=== PATIENT | male | born 1960 | race Caucasian/White ===

== ENCOUNTER 2016-07-24 23:44 | Emergency (ER) | payer OTHER ==
[~2016-07-24] VITALS: Ht 180.3 cm; Wt 89.7 kg
[~2016-07-24 23:44] MED LIST: APRISO0.375 GM PO; ATARAX,VISTARIL25 MG PO; AZATHIOPRINE50 MG PO; AZITHROMYCIN250 MG PO; BENADRYL25 MG PO; BENZONATATE200 MG PO; BUTALB-ACETAMI1 EAC2 PO; CIPRO500 MG PO; COUMADIN2 MG PO; CRESTOR10 MG PO; Cipro PO; DAILY VITAMIN1 EAC4 PO; DAILY VITAMIN1 EAC8 PO; DELZICOL400 MG PO; DICYCLOMINE HCL20 MG PO; EXCEDRIN EXTRA1 EACH PO; FISH OIL 1,0001 EA10 PO; FLAGYL500 MG PO; Flagyl PO; HYDROCORTISONE25 MG PO; LOVENOX80 MG/0.8 SC; METRONIDAZOLE500 MG PO; PEPCID20 MG PO; PREDNISONE10 MG PO; PREDNISONE20 MG PO; PREDNISONE5 MG PO; PROTONIX40 MG PO; THERAPEUTIC VI1 EACH; WARFARIN SODIUM2 MG PO; XARELTO20 MG PO; ZOFRAN4 MG PO; ZYRTEC10 M3 PO
[2016-07-25] MEDS ORDERED: ERYTHROMYC1 APPLICAT RIGHT EYE (02:16)
[2016-07-25 02:24] VITALS: BP 132/76
== END 2016-07-25 02:25 | disposition home or self-care (01) ==
LOC: EME 23:44
PROC: 08C8XZZ Extirpation of Matter from Right Cornea, External Approach (ICD-10-PCS; principal; 2016-07-24)
DX: T15.01XA Foreign body in cornea, right eye, initial encounter (principal); Z87.891 Personal history of nicotine dependence
CPT/HCPCS: 99281; 99283

== ENCOUNTER 2016-10-08 03:35 | Emergency (ER) | payer OTHER ==
[~2016-10-08] VITALS: Ht 180.3 cm; Wt 88.2 kg
[~2016-10-08 03:35] MED LIST changes: +ERYTHROMYC1 APPLICAT RIGHT EYE
[2016-10-08] MEDS ORDERED: FLEXERIL10 MG PO (04:03)
[2016-10-08] MEDS ORDERED: MEDROL DOSEPAK4 MG PO (04:03)
[2016-10-08 04:20] VITALS: BP 125/78
== END 2016-10-08 04:21 | disposition home or self-care (01) ==
LOC: EME 03:35
DX: M54.41 Lumbago with sciatica, right side (principal); K50.90 Crohn's disease, unspecified, without complications; Z86.718 Personal history of other venous thrombosis and embolism; Z79.01 Long term (current) use of anticoagulants; Z87.891 Personal history of nicotine dependence
CPT/HCPCS: 99281; 99284

== ENCOUNTER 2017-08-12 11:39 | Day surgery (SDC) | payer OTHER ==
[~2017-08-12] VITALS: Ht 180.3 cm; Wt 86.6 kg
[~2017-08-12 11:39] MED LIST changes: +COUMADIN2.5 MG PO; +FEOSOL325 MG PO; +FISH OIL 1,2001 EAC3 PO; +FLEXERIL10 MG PO; +HUMIRA40 MG/0.1 SC; +MEDROL DOSEPAK4 MG PO; +MESALAMINE1.2 GM PO; +ROBAXIN500 MG PO; +[UNRECOGNIZED DRUG - OTHER] PO
[2017-08-12 12:05] VITALS: BP 141/87
[2017-08-12] MEDS ORDERED: METHOCARBAMOL500 MG PO (15:12)
[2017-08-12] MEDS ORDERED: ENDOCET 5-3251 EACH PO (15:12)
[2017-08-12 19:54] VITALS: BP 122/62
[2017-08-12 23:44] VITALS: BP 116/59
[2017-08-13 05:42] VITALS: BP 120/78
[2017-08-13 07:35] VITALS: BP 116/66
[2017-08-13 11:28] VITALS: BP 143/70
[2017-08-13 15:45] VITALS: BP 122/70
[2017-08-13 16:34] VITALS: BP 153/73
== END 2017-08-13 17:50 | disposition home or self-care (01) ==
LOC: SDC 11:39 → 3EAST 14:57 → 2SOUTH 14:57 → ENRESERV 15:02 → 3EAST 16:34
PROC: 01NB0ZZ Release Lumbar Nerve, Open Approach (ICD-10-PCS; principal; 2017-08-12)
DX: M48.062 Spinal stenosis, lumbar region with neurogenic claudication (principal); M47.816 Spondylosis without myelopathy or radiculopathy, lumbar region; M54.16 Radiculopathy, lumbar region; R73.03 Prediabetes; E78.00 Pure hypercholesterolemia, unspecified; I73.9 Peripheral vascular disease, unspecified; K50.90 Crohn's disease, unspecified, without complications; Z86.711 Personal history of pulmonary embolism; Z87.891 Personal history of nicotine dependence; Z79.01 Long term (current) use of anticoagulants
CPT/HCPCS: 72100; 76000; G0378; G8978 GP CJ; G8979 GP CH; G8980 CJ; G8987 GO CJ; G8988 CI; G8989 CJ; J0131; J0690; J1100; J1170; J2250; J2405; J2710; J3010; J3480; J7643